=== PATIENT | female | born 1990 | race Caucasian/White ===

== ENCOUNTER 2017-06-24 12:50 | Outpatient (CLI) | payer OTHER ==
[~2017-06-24] VITALS: Ht 167.6 cm; Wt 78.6 kg
[2017-06-24] VITALS (11 sets, daily range): BP systolic 101–122; BP diastolic 58–81
[~2017-06-24 12:50] MED LIST: IBUPROFEN800 MG PO; NO DOZ100 MG PO; PRENATAL TABLE1 EAC3 PO
[2017-06-24 14:25] LABS: EOSINOPHIL (%) 0.4 % (0-5); HEMATOCRIT 30.1 % (36.0-46.0); IMMATURE GRANULOCYTE (%) 0.4 % (0.0-0.7); INSTRUMENT ABS NEUTROPHIL CT 4.2 K/uL; LYMPHOCYTE COUNT 0.8 K/uL (1.0-2.8); MCHC 32.2 G/DL (30.0-36.0); MCV 83.8 FL (83-99); MEAN PLAT.VOLUME 10.4 uM^3 (9.5-12.4); MONOCYTE (%) 3.6 % (3-12); MONOCYTE COUNT 0.2 K/uL (0-0.8); NEUTROPHIL (%) 79.6 % (45-76); NEUTROPHIL COUNT 4.2 K/uL (1.8-6.4); PLATELET COUNT 187 K/uL (156-360); RBC DIS.WIDTH-CV 13.1 % (11.8-14.6); RED BLOOD COUNT 3.59 M/uL (3.80-5.20); WHITE BLOOD COUNT 5.3 K/uL (4.1-10.2)
[2017-06-24 15:10] LABS: ADD MIUA? YES; BILIRUBIN NEGATIVE; BLOOD NEGATIVE; COLOR YELLOW ((YELLOW)); GLUCOSE (STRIP) NEGATIVE; KETONES 20; LEUKOCYTES NEGATIVE; NITRITE NEGATIVE; PROTEIN (STRIP) NEGATIVE; UROBILINOGEN 0.2 MG/DL (0.2-1.0)
[2017-06-24 15:20] LABS: BACTERIA NONE SEEN /HPF; EPITHELIAL CELLS 1+ /HPF; MUCUS TRACE /LPF; RED BLOOD CELLS 0-5 /HPF (0-5); UCUL ADDED? NO; WHITE BLOOD CELLS 0-5 /HPF (0-5)
[2017-06-24] MEDS ORDERED: FOLIC ACID1 MG PO (15:27)
[2017-06-24] MEDS ORDERED: CALCI-CHEW500 MG PO (15:28)
[2017-06-24] MEDS ORDERED: SLOW RELEASE I160 MG PO (15:29)
[2017-06-24] MEDS ORDERED: LOW DOSE ASPIRI81 M1 PO (15:30)
[2017-06-25] VITALS (14 sets, daily range): BP systolic 99–119; BP diastolic 54–78
== END 2017-06-25 15:24 | disposition home or self-care (01) ==
LOC: LDRP-OP 12:50 → 2WEST 12:51 → LDRP-OP 09-01 13:25
PROVIDERS: Midwife
DX: O60.03 Preterm labor without delivery, third trimester (principal); O36.8120 Decreased fetal movements, second trimester, not applicable or unspecified; O30.043 Twin pregnancy, dichorionic/diamniotic, third trimester; Z3A.34 34 weeks gestation of pregnancy; O09.03 Supervision of pregnancy with history of infertility, third trimester; O09.813 Supervision of pregnancy resulting from assisted reproductive technology, third trimester
CPT/HCPCS: 59025; 81003; 82731; 85025; 87653; G0378; J0702; J2540; J7120

== ENCOUNTER 2017-07-18 06:50 | Inpatient (IN) | payer OTHER ==
[~2017-07-18] VITALS: Ht 167.6 cm; Wt 125.6 kg
[2017-07-18] VITALS (27 sets, daily range): BP systolic 96–131; BP diastolic 56–89
[~2017-07-18 06:50] MED LIST changes: +CALCI-CHEW500 MG PO; +FOLIC ACID1 MG PO; +LOW DOSE ASPIRI81 M1 PO; +SLOW RELEASE I160 MG PO
[2017-07-18 09:11] LABS: BASOPHIL (%) 0.2 % (0-1); EOSINOPHIL (%) 0.7 % (0-5); HEMATOCRIT 28.7 % (36.0-46.0); HEMOGLOBIN 9.1 G/DL (11.9-15.5); IMMATURE GRANULOCYTE (%) 0.5 % (0.0-0.7); LYMPHOCYTE (%) 34.8 % (15-42); MCH 26.1 PG (29.0-34.0); MCHC 31.7 G/DL (30.0-36.0); MCV 82.2 FL (83-99); MONOCYTE (%) 4.8 % (3-12); MONOCYTE COUNT 0.3 K/uL (0-0.8); NEUTROPHIL COUNT 3.3 K/uL (1.8-6.4); PLATELET COUNT 154 K/uL (156-360); RBC DIS.WIDTH-CV 14.2 % (11.8-14.6); RBC DIS.WIDTH-SD 42.2 % (39-53); RED BLOOD COUNT 3.49 M/uL (3.80-5.20); WHITE BLOOD COUNT 5.6 K/uL (4.1-10.2)
[2017-07-18] MEDS ORDERED: IBUPROFEN800 MG PO (19:40)
[2017-07-19 07:31] VITALS: BP 138/89
[2017-07-19 15:30] VITALS: BP 122/82
[2017-07-20 07:36] VITALS: BP 116/77
== END 2017-07-20 14:15 | disposition home or self-care (01) | DRG 775 ==
LOC: LDRP-OP 06:50 → 2WEST 06:51 → LDRP-OP 08-01 21:47
PROVIDERS: Midwife
PROC: 3E0R3BZ Introduction of Anesthetic Agent into Spinal Canal, Percutaneous Approach (ICD-10-PCS; principal; 2017-07-18)
PROC: 10E0XZZ Delivery of Products of Conception, External Approach (ICD-10-PCS; principal; 2017-07-18)
PROC: 10907ZC Drainage of Amniotic Fluid, Therapeutic from Products of Conception, Via Natural or Artificial Opening (ICD-10-PCS; principal; 2017-07-18)
PROC: 00HU33Z Insertion of Infusion Device into Spinal Canal, Percutaneous Approach (ICD-10-PCS; principal; 2017-07-18)
PROC: 3E033VJ Introduction of Other Hormone into Peripheral Vein, Percutaneous Approach (ICD-10-PCS; principal; 2017-07-18)
DX: O30.043 Twin pregnancy, dichorionic/diamniotic, third trimester (principal); O75.9 Complication of labor and delivery, unspecified; Z37.2 Twins, both liveborn; O99.824 Streptococcus B carrier state complicating childbirth; O36.0930 Maternal care for other rhesus isoimmunization, third trimester, not applicable or unspecified; O32.9XX2 Maternal care for malpresentation of fetus, unspecified, fetus 2; Z3A.38 38 weeks gestation of pregnancy
CPT/HCPCS: 85025; 86850; 86900; 86901; 88307; C1755; J2540; J3010; J7120